=== PATIENT | male | born 1960 | race Caucasian/White ===

== ENCOUNTER 2017-03-22 05:11 | Inpatient (IN) | payer MEDICARE ==
[2017-03-15 14:32] LABS: HEMATOCRIT 40.1 % (40.0-51.0); HEMOGLOBIN 13.4 g/dL (13.6-17.8)
[2017-03-15 14:49] LABS: BUN (BLOOD UREA NITROGEN) 14 MG/DL (6-23); CALCIUM, SERUM 9.3 MG/DL (8.5-10.4); CHLORIDE, SERUM 104 MMOL/L (96-112); CO2 (CARBON DIOXIDE) 32 MMOL/L (24-34); CREATININE 1.29 MG/DL (0.70-1.30); GFR AFRICAN AMERICAN 72 ML/MIN (>=60); GFR NON AFRICAN AMERICAN 62 ML/MIN (>=60); GLUCOSE, SERUM 137 MG/DL (60-99); POTASSIUM, SERUM 4.1 MMOL/L (3.5-5.3); SODIUM, SERUM 140 MMOL/L (135-148)
--- NOTE | ~2017-03-22 | OP ---
Record Of Operation [address] [place]. [address] NAME: OLIVA GIVENS JR : 62 STATUS : ADM IN PAT#: [id number] AGE: 56 ADM/REG DATE : 03/22/17 MR#: [id number] REPORT SERV DATE: 03/23/17 DICTATED BY: JESSICA FERNÁNDEZ II DATE: 03/22/17 REPORT STATUS : Draft TRANSCRIBED BY: MODL DATE: 03/22/17 DATE OF PROCEDURE: 03/22/2017 PREOPERATIVE DIAGNOSES: 1. 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 2. Left lower extremity footdrop, partial including peroneal weakness. 3. Facet instability. 4. Pars fractures L3, and L4. POSTOPERATIVE DIAGNOSES: 1. 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 2. Left lower extremity footdrop, partial including peroneal weakness. 3. Facet instability. PROCEDURE: 1. Revision posterior facetectomy, L3-4, L4-5. 2. Interbody arthrodesis, L3-4, L4-5. 3. Application of prosthetic device, L3-4, L4-5. 4. Posterolateral arthrodesis, L3-4, L4-5. 5. Use of local autograft, allograft substitute, and bone morphogenic protein. 6. Use of the microscope and stereotactic spinal imaging. SURGEON: Jessica Fernández M.D. FLUIDS: 2300 mL LR. ESTIMATED BLOOD LOSS: 300 mL. DRAIN: One drain COMPLICATIONS: None. ANTIBIOTIC: Preoperatively. IMPLANTS: Alphatec. PREOPERATIVE HISTORY: A very friendly, 56-year-old gentleman, who we performed a minimally invasive decompression in 2016. In retrospect, it appears that we likely would have better served him by performing a more aggressive facetectomies. At this point, given the need for more aggressive facetectomy and the pars fractures, I felt the best course of action was to perform a complete facetectomy and decompress the canal foramen and lateral recesses more aggressively. We discussed the risks and the benefits and he wished to proceed. DESCRIPTION OF PROCEDURE: After informed consent was obtained, the patient was brought to Record Of Operation [address] [place]. [address] NAME: OLIVA GIVENS : 62 STATUS : ADM IN PAT#: [id number] AGE: 56 ADM/REG DATE : 03/22/17 MR#: [id number] REPORT SERV DATE: 03/23/17 DICTATED BY: JESSICA FERNÁNDEZ II DATE: 03/22/17 REPORT STATUS : Draft TRANSCRIBED BY: GISELA DATE: 03/22/17 the operating room at his request and general anesthesia achieved. He was placed in the prone position. The back was prepped and draped in a sterile fashion. The stereotactic spinal pin was placed into the iliac crest on the right side followed by completion of the intraoperative CT scan. Stereotactic guidance was then used throughout the case. At this point, the minimally invasive incision was performed on the left. We unfortunately had to obtain the custom instruments because of the depth of the wound. This gentleman is very, very muscular and overall, the standard 8 cm blades were simply not deep enough. We ultimately had to use the 9 cm blades for up and down and the 9 cm and 11 cm blades for medial to lateral. Overall, the surgery was extremely difficult because of his size as well as the revision nature of the surgery. Our operative time and blood loss were much more than normal. At this point, the soft tissue was ultimately removed. Again, this was extremely difficult given the complexity of the case because of the depth of the wound and the severity of the stenosis. The L4-5 facet was now ultimately removed. A pedicle to pedicle decompression was achieved and both nerve roots well decompressed including removal of the spinal laminar junction to allow better decompression of the central canal. At this point, the both nerve roots well decompressed. The interbody arthrodesis was initiated at L4-5. The L5 nerve root was gently retracted followed by diskectomy with the knife followed by use of the pituitary rongeurs, Kerrison rongeurs, and curettes. The endplates were denuded of their cartilage followed by confirmation of punctate bleeding bone. The prosthetic device was now well placed into L4-5. The local autograft, allograft substitute, and bone morphogenic protein were also placed into the anterior column. At this point, the L3-4 level was addressed in a similar manner. Again, we encountered significant scarring. We also encountered a small facet cyst. Please note, also at L4-5, we had encountered a large facet cyst. At L3-4, we removed the pars as well as the loose pars fragments. The pedicle to pedicle decompression was now achieved. The interbody arthrodesis was now initiated with the knife followed by use of the pituitary rongeurs, Kerrison rongeurs, and the curettes. The endplates were denuded off their cartilage followed by confirmation of punctate bleeding bone. Following irrigation of the disk space. The prosthetic device was then well placed at L3-4. We also placed allograft substitute, and bone morphogenic protein into the anterior column. At this point, the pedicle screws were applied at L3, L4, and L5 on the left. Percutaneous screws were placed on the right at L3 and L5. Please note, we also repeated the CT scan prior to implantation of the right pedicle screws. The rods were then final tightened following an additional CT scan, which confirmed acceptable placement of the implants. The rods were then final tightened. Next, on the left, we then decorticated the transverse processes at L3, L4, and L5. Again, this was not easy because of the depth of the wound. Local autograft and allograft substitute were placed along these decorticated surfaces. A deep drain was placed followed by standard closure, and the patient was then extubated and transferred to PACU in stable condition. Record Of Operation [facility] [address] [facility]. [address] NAME: OLIVA GIVENS : 62 STATUS : ADM IN PAT#: [id number] AGE: 56 ADM/REG DATE : 03/22/17 MR#: [id number] REPORT SERV DATE: 03/23/17 DICTATED BY: JESSICA FERNÁNDEZ II DATE: 03/22/17 REPORT STATUS : Draft TRANSCRIBED BY: GISELA DATE: 03/22/17 SOURAV/GISELA Jessica Fernández II, M.D. / [id number] CC: Shruthi Arnold II, MD
--- NOTE | ~2017-03-22 | DS ---
Discharge Summary [facility] [address] [place]. [address] NAME: OLIVA GIVENS JR : 62 STATUS : DIS IN PAT#: [id number] AGE: 56 ADM/REG DATE : 03/22/17 MR#: [id number] REPORT SERV DATE: 03/31/17 DICTATED BY: JESSICA DEVLIN II DATE: 03/31/17 REPORT STATUS : Draft TRANSCRIBED BY: GISELA DATE: 03/31/17 Data Collection from hospitalization DISCHARGE DIAGNOSES: 1. 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 2. Left lower extremity footdrop partial including peroneal weakness. 3. Facet instability. 4. Diabetes. 5. Hypertension. 6. Anxiety. 7. Benign prostatic hypertrophy. 8. Bronchitis. 9. Depression. 10.Gastroesophageal reflux disease. 11.Gout. 12.Kidney disease. 13.Nephrolithiasis. 14.History of transient ischemic attack. CONSULTATIONS: Kodak Fitzgerald. PROCEDURES PERFORMED: Revision posterior facetectomy L3-4, L4-5; interbody arthrodesis L3-4, L4-5; application of prosthetic device L3-4, L4-5; posterolateral arthrodesis L3-4, L4-5; use of local autograft, allograft substitute, and bone morphogenic protein; use of microscope and stereotactic spinal imaging, 03/22/2017. PATHOLOGY: Tissue from lumbar spine area-benign soft tissue and skeletal muscle with benign bone and cartilage. Focal degenerative changes with focal osteoclastic resorption and focal medullary fibrosis. Medullary bone with bone marrow particles with trilineage hematopoiesis. No metastatic malignancy or lymphoid or plasma cell neoplasm. DISCHARGE MEDICATIONS: Lipitor 40 mg at bedtime, vitamin B12 1000 mcg every morning, Celexa 40 mg at bedtime, NovoLog injection insulin 20 units subcutaneously before meals, Lopressor 50 mg twice a day, Protonix 40 mg every morning, Apresoline 50 mg twice a day, Tylenol 650 mg every six hours as needed, Mylanta 30 mL as needed, Dulcolax 10 mg per rectum as needed, Valium one to two tablets every six hours as needed, Humalog 30 units subcutaneously twice a day as instructed, aspirin 81 mg daily, Neurontin 600 mg twice a day as instructed, Roxicodone 10 mg every three hours as needed. CONDITION AT DISCHARGE: Stable. DISPOSITION: The patient was discharged home on an 1800-calorie diabetic diet with activities as instructed. He will follow up with me 04/14/2017. HOSPITAL COURSE: This is a 56-year-old man who complained of low back pain radiating into the bilateral lower extremities, right greater than left with numbness, leaking, and sharp, shooting, stabbing pains in the left foot. The patient has left lower extremity recurrent stenosis with recurrent facet hypertrophy and left lower extremity footdrop partial Discharge Summary [address] [address] NAME: OLIVA GIVENS JR : 62 STATUS : DIS IN PAT#: [id number] AGE: 56 ADM/REG DATE : 03/22/17 MR#: [id number] REPORT SERV DATE: 03/31/17 DICTATED BY: JESSICA DEVLIN II DATE: 03/31/17 REPORT STATUS : Draft TRANSCRIBED BY: GISELA DATE: 03/31/17 including peroneal weakness. He has facet instability and pars fractures L3 and L4. Treatment options were discussed and it was elected to proceed with surgical intervention. He was admitted to the hospital at this time for further evaluation and treatment. Upon admission, he was taken to the operating room where he underwent the above-mentioned procedure. He tolerated this well. There were no complications. Postoperatively, he was seen by Kodak Fitzgerald. She had been asked to see the patient regarding glycemia control. The patient reports having had type 2 diabetes mellitus for about 30 years. Hemoglobin A1c was going to be checked. In 08/2016, hemoglobin A1c was 9.4. He would be kept on an insulin drip overnight. We would increase sliding scale insulin to level 2. ARVIN inhibitor, and hydrochlorothiazide were continued as well as IV normal saline. He was evaluated by Physical Therapy. On postop day #1, he looks good. He had good pain control. He had a normal respiratory effort. He did use his CPAP the previous evening. Over the next couple of days, he continued to progress. He was ambulating in the halls. His catheter was removed. Discharge planning was performed. He underwent diabetes education. On 03/25/2017, his lower extremity radiculopathy was improving. He was eager to go home. Hemoglobin A1c was 8.5. Discharge instructions were given. Due to his improved and stable condition, he was discharged home with the above-stated instructions. Information collected by: Estephania Castrejon I submit the above information as my discharge summary. SHAWN/GISELA Jessica Devlin II, M.D. / [id number] CC: Shruthi Arnold II, JOSEPH PATRICK
[~2017-03-22 05:11] MED LIST: ACET500CAP PO; APRES50 PO; ASAB PO; CELEXA40 MG PO; CYANO1000T PO; HUMALOGMIX SC; JENTADUETO 2.51 EAC2 PO; LIPITOR40 PO; LOP50 PO; LOTENSIN HCT1 TA2 PO; NEUR600 PO; NOVOLOG SC; OXYCOD PO; PROTONIX PO; ULTRAM50 PO; V2 PO
[2017-03-22 17:04] LABS: BUN (BLOOD UREA NITROGEN) 23 MG/DL (6-23); CALCIUM, SERUM 8.6 MG/DL (8.5-10.4); CHLORIDE, SERUM 104 MMOL/L (96-112); CO2 (CARBON DIOXIDE) 23 MMOL/L (24-34); GFR AFRICAN AMERICAN 60 ML/MIN (>=60); GFR NON AFRICAN AMERICAN 52 ML/MIN (>=60); GLUCOSE, SERUM 300 MG/DL (60-99); SODIUM, SERUM 139 MMOL/L (135-148)
[2017-03-23 04:32] LABS: BASOPHILS 0 %; EOSINOPHILS 0 %; HEMOGLOBIN 11.6 g/dL (13.6-17.8); IMMATURE GRANULOCYTES 0.2 %; IMMATURE GRANULOCYTES ABSOLUTE 0.02 10/3/uL (0.0-0.11); LYMPHOCYTES ABSOLUTE 1.27 10/3/uL (0.67-4.30); MEAN CORPUS HGB CONC 33.4 g/dL (32.0-36.0); MEAN CORPUSCULAR HEMOGLOB 27.7 pg (26.0-34.0); MEAN CORPUSCULAR VOLUME 82.8 fL (80-100); MEAN PLATELET VOLUME 9.8 fL (9.2-13.0); MONOCYTES 7.2 %; NEUTROPHILS 79.6 %; PLATELET COUNT 167 10/3/uL (150-400); RBC DISTRIBUTION WIDTH 15.2 % (12.0-16.0); RED CELL COUNT 4.19 10/6/uL (4.7-6.1); WHITE BLOOD CELLS 9.8 10/3/uL (4.5-10.5)
[2017-03-23 04:39] LABS: HEMATOCRIT 34.7 % (40.0-51.0); MANUAL DIFF NO %
[2017-03-23 04:46] LABS: BUN (BLOOD UREA NITROGEN) 23 MG/DL (6-23); CALCIUM, SERUM 8.2 MG/DL (8.5-10.4); CHLORIDE, SERUM 102 MMOL/L (96-112); CO2 (CARBON DIOXIDE) 29 MMOL/L (24-34); CREATININE 1.51 MG/DL (0.70-1.30); GFR AFRICAN AMERICAN 59 ML/MIN (>=60); GFR NON AFRICAN AMERICAN 51 ML/MIN (>=60); GLUCOSE, SERUM 225 MG/DL (60-99); POTASSIUM, SERUM 4.3 MMOL/L (3.5-5.3); SODIUM, SERUM 139 MMOL/L (135-148)
[2017-03-24 04:27] LABS: BASOPHILS 0.1 %; BASOPHILS ABSOLUTE 0.01 10/3/uL (0.0-0.16); EOSINOPHILS 0.9 %; HEMATOCRIT 37.6 % (40.0-51.0); HEMOGLOBIN 12.4 g/dL (13.6-17.8); IMMATURE GRANULOCYTES 0.4 %; IMMATURE GRANULOCYTES ABSOLUTE 0.04 10/3/uL (0.0-0.11); LYMPHOCYTES 29.8 %; LYMPHOCYTES ABSOLUTE 3.19 10/3/uL (0.67-4.30); MEAN CORPUSCULAR HEMOGLOB 27.6 pg (26.0-34.0); MEAN CORPUSCULAR VOLUME 83.7 fL (80-100); MEAN PLATELET VOLUME 9.4 fL (9.2-13.0); MONOCYTES 11.6 %; MONOCYTES ABSOLUTE 1.24 10/3/uL (0.21-1.20); NEUTROPHILS 57.2 %; NEUTROPHILS ABSOLUTE 6.14 10/3/uL (2.02-8.40); PLATELET COUNT 186 10/3/uL (150-400); RBC DISTRIBUTION WIDTH 15.3 % (12.0-16.0); RED CELL COUNT 4.49 10/6/uL (4.7-6.1); WHITE BLOOD CELLS 10.7 10/3/uL (4.5-10.5)
[2017-03-24 04:30] LABS: MANUAL DIFF NO %
[2017-03-24 04:39] LABS: BUN (BLOOD UREA NITROGEN) 36 MG/DL (6-23); CALCIUM, SERUM 8.3 MG/DL (8.5-10.4); CHLORIDE, SERUM 100 MMOL/L (96-112); CO2 (CARBON DIOXIDE) 26 MMOL/L (24-34); CREATININE 1.79 MG/DL (0.70-1.30); GFR AFRICAN AMERICAN 48 ML/MIN (>=60); GFR NON AFRICAN AMERICAN 42 ML/MIN (>=60); GLUCOSE, SERUM 134 MG/DL (60-99); POTASSIUM, SERUM 3.9 MMOL/L (3.5-5.3); SODIUM, SERUM 134 MMOL/L (135-148)
[2017-03-25 04:38] LABS: BASOPHILS 0.1 %; BASOPHILS ABSOLUTE 0.01 10/3/uL (0.0-0.16); EOSINOPHILS 1.1 %; EOSINOPHILS ABSOLUTE 0.09 10/3/uL (0.0-0.53); HEMOGLOBIN 10.9 g/dL (13.6-17.8); IMMATURE GRANULOCYTES 0.4 %; IMMATURE GRANULOCYTES ABSOLUTE 0.03 10/3/uL (0.0-0.11); LYMPHOCYTES 24.5 %; LYMPHOCYTES ABSOLUTE 1.99 10/3/uL (0.67-4.30); MEAN CORPUSCULAR HEMOGLOB 27.3 pg (26.0-34.0); MEAN CORPUSCULAR VOLUME 82.7 fL (80-100); MEAN PLATELET VOLUME 9.7 fL (9.2-13.0); MONOCYTES 10.5 %; MONOCYTES ABSOLUTE 0.85 10/3/uL (0.21-1.20); NEUTROPHILS 63.4 %; NEUTROPHILS ABSOLUTE 5.14 10/3/uL (2.02-8.40); PLATELET COUNT 172 10/3/uL (150-400); RBC DISTRIBUTION WIDTH 15.2 % (12.0-16.0); RED CELL COUNT 3.99 10/6/uL (4.7-6.1); WHITE BLOOD CELLS 8.1 10/3/uL (4.5-10.5)
[2017-03-25 04:40] LABS: MANUAL DIFF NO %
[2017-03-25 04:46] LABS: CALCIUM, SERUM 8.4 MG/DL (8.5-10.4); CHLORIDE, SERUM 105 MMOL/L (96-112); CO2 (CARBON DIOXIDE) 28 MMOL/L (24-34); CREATININE 1.47 MG/DL (0.70-1.30); GFR AFRICAN AMERICAN 61 ML/MIN (>=60); GFR NON AFRICAN AMERICAN 53 ML/MIN (>=60); POTASSIUM, SERUM 3.8 MMOL/L (3.5-5.3); SODIUM, SERUM 140 MMOL/L (135-148)
[2017-03-25 04:48] LABS: BUN (BLOOD UREA NITROGEN) 32 MG/DL (6-23); GLUCOSE, SERUM 183 MG/DL (60-99)
[2017-03-25] MEDS ORDERED: ALDROXICON PO (15:42)
[2017-03-25] MEDS ORDERED: BISR PR (15:43)
== END 2017-03-25 17:06 | disposition home or self-care (01) | DRG 460 ==
LOC: SDC/OF 05:11 → PACU 13:02 → 3SO 15:08
PROVIDERS: Nurse Practitioner; Orthopaedic Surgery
PROC: 0SG10AJ Fusion of 2 or more Lumbar Vertebral Joints with Interbody Fusion Device, Posterior Approach, Anterior Column, Open Approach (ICD-10-PCS; principal; 2017-03-22 07:45)
PROC: 0SG1071 Fusion of 2 or more Lumbar Vertebral Joints with Autologous Tissue Substitute, Posterior Approach, Posterior Column, Open Approach (ICD-10-PCS; 2017-03-22 07:45)
PROC: 4A11X4G Monitoring of Peripheral Nervous Electrical Activity, Intraoperative, External Approach (ICD-10-PCS; 2017-03-22 07:45)
DX: M51.36 Other intervertebral disc degeneration, lumbar region (principal); E11.22 Type 2 diabetes mellitus with diabetic chronic kidney disease; S32.039A Unspecified fracture of third lumbar vertebra, initial encounter for closed fracture; S32.049A Unspecified fracture of fourth lumbar vertebra, initial encounter for closed fracture; Z68.41 Body mass index [BMI] 40.0-44.9, adult; E11.65 Type 2 diabetes mellitus with hyperglycemia; E78.5 Hyperlipidemia, unspecified; G47.33 Obstructive sleep apnea (adult) (pediatric); K21.9 Gastro-esophageal reflux disease without esophagitis; E66.01 Morbid (severe) obesity due to excess calories; I12.9 Hypertensive chronic kidney disease with stage 1 through stage 4 chronic kidney disease, or unspecified chronic kidney disease; N18.3 Chronic kidney disease, stage 3 (moderate); Z86.73 Personal history of transient ischemic attack (TIA), and cerebral infarction without residual deficits
CPT/HCPCS: 80048; 82962; 83036; 83735; 85014; 85018; 85025; 87641; 88304; 88311; 93005; 97116-GP; 97161-GP; A9270-GY; C1713; C1768; J0690; J2250; J2370; J2405; J2710; J3010; J3370

== ENCOUNTER 2017-04-08 21:29 | Emergency (ER) | payer MEDICARE ==
[~2017-04-08 21:29] MED LIST changes: +ALDROXICON PO; +BISR PR
[2017-04-08 21:32] LABS: BASOPHILS 0.2 %; BASOPHILS ABSOLUTE 0.01 10/3/uL (0.0-0.16); EOSINOPHILS 1.7 %; ER CBC TAT 0 Hrs 05 Mins; HEMATOCRIT 35.5 % (40.0-51.0); HEMOGLOBIN 11.6 g/dL (13.6-17.8); IMMATURE GRANULOCYTES 0.2 %; IMMATURE GRANULOCYTES ABSOLUTE 0.01 10/3/uL (0.0-0.11); LYMPHOCYTES 26.8 %; LYMPHOCYTES ABSOLUTE 1.54 10/3/uL (0.67-4.30); MEAN CORPUS HGB CONC 32.7 g/dL (32.0-36.0); MEAN CORPUSCULAR VOLUME 82.6 fL (80-100); MEAN PLATELET VOLUME 9.4 fL (9.2-13.0); MONOCYTES 4.7 %; MONOCYTES ABSOLUTE 0.27 10/3/uL (0.21-1.20); NEUTROPHILS 66.4 %; NEUTROPHILS ABSOLUTE 3.82 10/3/uL (2.02-8.40); WHITE BLOOD CELLS 5.8 10/3/uL (4.5-10.5)
[2017-04-08 21:36] LABS: MANUAL DIFF NO %; PLATELET COUNT 228 10/3/uL (150-400)
[2017-04-08 21:46] LABS: INTERNATIONAL NORMAL RATI 1.1 UNITS (-); PARTIAL THROMBO TIME 33.2 SEC (22.5-37.2); PROTIME (NOT ORD) 14.4 SEC (12.0-14.5)
[2017-04-08 21:49] LABS: ALBUMIN 3.5 G/DL (3.5-5.0); ALKALINE PHOSPHATASE 128 U/L (45-117); BUN (BLOOD UREA NITROGEN) 14 MG/DL (6-23); CALCIUM, SERUM 8.7 MG/DL (8.5-10.4); CHEST PAIN PROFILE TAT 0 Hrs 22 Mins; CHLORIDE, SERUM 104 MMOL/L (96-112); CO2 (CARBON DIOXIDE) 30 MMOL/L (24-34); CREATININE 1.42 MG/DL (0.70-1.30); DIRECT BILIRUBIN 0.1 MG/DL (0.0-0.4); GFR AFRICAN AMERICAN 64 ML/MIN (>=60); GFR NON AFRICAN AMERICAN 55 ML/MIN (>=60); GLUCOSE, SERUM 165 MG/DL (60-99); INDIRECT BILIRUBIN(NOT ORDER) 0.3 MG/DL (0.1-0.9); POTASSIUM, SERUM 4.2 MMOL/L (3.5-5.3); SGOT(AST) 39 U/L (5-40); SGPT(ALT) 19 U/L (5-65); SODIUM, SERUM 142 MMOL/L (135-148); TOTAL BILIRUBIN 0.4 MG/DL (0-1.2); TOTAL PROTEIN 7.4 G/DL (6.0-8.5); TROPONIN I <0.02 NG/ML (<0.05)
[2017-04-08 22:00] LABS: ASCORBIC ACID (UR NOT ORDER) NEG (NEG); BILIRUBIN, URINE NEGATIVE (NEG); ER URINALYSIS TAT 0 Hrs 10 Mins; KETONE, URINE NEGATIVE (NEG); LEUKOCYTE ESTERASE(NOT OR NEG (NEG); NITRITE (URINE) NEG (NEG); WBC (NOT ORDERED) (RFLEX) 1 (0-5)
== END 2017-04-09 00:40 | disposition home or self-care (01) ==
LOC: ER 21:29
PROVIDERS: Nurse Practitioner
DX: R60.9 Edema, unspecified (principal); E11.65 Type 2 diabetes mellitus with hyperglycemia; R07.9 Chest pain, unspecified; M54.5 Low back pain; I12.9 Hypertensive chronic kidney disease with stage 1 through stage 4 chronic kidney disease, or unspecified chronic kidney disease; N18.9 Chronic kidney disease, unspecified; K21.9 Gastro-esophageal reflux disease without esophagitis; E78.5 Hyperlipidemia, unspecified; Z86.73 Personal history of transient ischemic attack (TIA), and cerebral infarction without residual deficits; F32.9 Major depressive disorder, single episode, unspecified; F41.9 Anxiety disorder, unspecified; Z88.2 Allergy status to sulfonamides; Z79.82 Long term (current) use of aspirin; Z79.4 Long term (current) use of insulin; Z79.899 Other long term (current) drug therapy
CPT/HCPCS: 71010; 80048; 80076; 81001; 83735; 83880; 84484; 85025; 85610; 85730; 93005; 93970; 96374; 99284; J1940